=== PATIENT | female | born 1980 | race Caucasian/White ===

== ENCOUNTER 2018-08-01 10:57 | Emergency (ER) | payer OTHER ==
[~2018-08-01] VITALS: Ht 162.6 cm; Wt 87.1 kg
[2018-08-01] MEDS ORDERED: BUPR150ER PO (11:07)
[2018-08-01] MEDS ORDERED: ZIPR60 PO (11:07)
[2018-08-01] MEDS ORDERED: PRAZ2 PO (11:07)
[2018-08-01] MEDS ORDERED: Protonix40 MG PO (11:07)
[2018-08-01] MEDS ORDERED: Neurontin 300300 MG PO (11:07)
== END 2018-08-01 11:12 | disposition home or self-care (01) ==
LOC: ER 10:57
DX: Z76.0 Encounter for issue of repeat prescription (principal); F20.9 Schizophrenia, unspecified; Z91.030 Bee allergy status; Z79.899 Other long term (current) drug therapy; Z87.891 Personal history of nicotine dependence
CPT/HCPCS: 99281